=== PATIENT | male | born 1945 | race Caucasian/White ===

== ENCOUNTER → 2018-07-05 | Outpatient (CLI) | payer MEDICARE, OTHER ==
[~2018-07-05] MED LIST: ASCO10004 PO; ASPI-496 PO; ATOR20TA37 PO; CHOL200074 PO; GABA PO; LISI5TAB7 PO; PANT40TA5 PO; RED600CA2 PO; Thyroxine PO; VITA400C43 PO
== END | disposition home or self-care (01) ==
LOC: STAR 13:49
PROVIDERS: ATTEND Surgery
DX: Z01.818 Encounter for other preprocedural examination (principal); I65.22 Occlusion and stenosis of left carotid artery
CPT/HCPCS: 93005

== ENCOUNTER 2018-07-12 08:29 | Inpatient (IN) | payer MEDICARE, OTHER ==
[~2018-07-12] VITALS: Ht 177.8 cm; Wt 71.3 kg
[~2018-07-12 08:29] MED LIST changes: +BACITRACIN 50,000 UNIT ONE; +HEPARIN 1,000 UNITS/ML, 10ML ONE; +LIDOCAINE 1%-EPI 1:100K, 30ML ONE; +PAPAVERINE 30 MG/ML, 2ML ONE; +PROTAMINE SULFATE 10 MG/ML, 5ML ONE; +THROMBIN 5,000 UNIT VIAL TP ONE
[2018-07-12] MEDS ORDERED: LACTATED RINGERS 1,000 ML IV SCH (09:12)
[2018-07-12] MEDS ORDERED: FENTANYL PF 250 MCG/5ML ONE (09:52)
[2018-07-12] MEDS ORDERED: PHENYLEPHRINE 10 MG/ML ONE (10:30)
[2018-07-12] MEDS ORDERED: LIDOCAINE 4%, 4 ML SYR/CANN TP ONE (10:30)
[2018-07-12] MEDS ORDERED: EPHEDRINE 50 MG/ML, 1ML ONE (10:30)
[2018-07-12] MEDS ORDERED: MIDAZOLAM 1 MG/ML, 2ML ONE (11:02)
[2018-07-12] MEDS ORDERED: LIDOCAINE 1%-EPI 1:100K, 30ML INFIL ONE (11:06)
[2018-07-12] MEDS ORDERED: ONDANSETRON 2MG/ML, 2ML ONE ×2 (12:28→15:05)
[2018-07-12] MEDS ORDERED: CEFAZOLIN 1,000 MG ONE (12:28)
[2018-07-12] MEDS ORDERED: SUCCINYLCHOLINE 20 MG/ML, 10ML ONE (12:28)
[2018-07-12] MEDS ORDERED: GLYCOPYRROLATE 0.2MG/1ML, 5ML ONE (12:28)
[2018-07-12] MEDS ORDERED: NEOSTIGMINE 1 MG/ML, 10ML ONE (12:28)
[2018-07-12] MEDS ORDERED: PROPOFOL 10 MG/ML, 20ML ONE (12:28)
[2018-07-12] MEDS ORDERED: DEXAMETHASONE 4 MG/ML, 1ML ONE (12:28)
[2018-07-12] MEDS ORDERED: ROCURONIUM 10MG/ML,5ML ONE (12:28)
[2018-07-12] MEDS: FENTANYL PF 100 MCG/2ML IV PRN ×2 (12:44→13:15)
[2018-07-12] MEDS ORDERED: FENTANYL PF 100 MCG/2ML ONE (12:44)
[2018-07-12] MEDS ORDERED: LABETALOL 20 MG/4 ML ONE (12:44)
[2018-07-12] MEDS ORDERED: hydrALAzine 20 MG/ML, 1ML IV PRN (13:00)
[2018-07-12] MEDS ORDERED: ACETAMINOPHEN 325 MG TABLET PO PRN (13:00)
[2018-07-12] MEDS ORDERED: ONDANSETRON ODT 8 MG PO PRN (13:00)
[2018-07-12] MEDS ORDERED: DIAZEPAM 5 MG/ML, 2ML IVPush PRN (13:00)
[2018-07-12] MEDS ORDERED: OXYcodone 5 MG/5 ML ORAL.SOL UDC PO PRN (13:00)
[2018-07-12] MEDS ORDERED: ONDANSETRON 2MG/ML, 2ML IV PRN (13:00)
[2018-07-12] MEDS ORDERED: MEPERIDINE/PF 25MG/0.5ML IVPush PRN (13:00)
[2018-07-12] MEDS ORDERED: HYDROmorphone 2 MG/ML, 1ML IVPush PRN (13:00)
[2018-07-12] MEDS ORDERED: PROMETHAZINE 25 MG/ML, 1ML IM PRN (13:00)
[2018-07-12] MEDS ORDERED: ACETAMINOPHEN 650 MG/20.3 ML UDC ONE (13:28)
[2018-07-12] MEDS ORDERED: OXYcodone 5 MG/5 ML ORAL.SOL UDC ONE (13:28)
[2018-07-12] MEDS: LABETALOL 5MG/ML, 20ML IV PRN ×2 (13:32→13:39)
[2018-07-12] MEDS ORDERED: MORPHINE SULFATE 4 MG/ML, 1ML ONE (14:34)
[2018-07-12 14:44] VITALS: BP 162/60
[2018-07-12] MEDS ORDERED: NITROPRUSSIDE 50 MG in DEXTROSE 5% 248 ML IV SCH (15:00)
[2018-07-12] MEDS ORDERED: PHENYLEPHRINE 10 MG in DEXTROSE 5% 249 ML IV SCH (15:00)
[2018-07-12] MEDS ORDERED: HYDROcodone/APAP 5/325 TABLET PO PRN (15:00)
[2018-07-12] MEDS ORDERED: ONDANSETRON 2MG/ML, 2ML IVPush PRN (15:00)
[2018-07-12] MEDS ORDERED: morphine SULFATE 10 MG/ML, 1ML IV PRN (15:00)
[2018-07-12] MEDS ORDERED: LABETALOL 5MG/ML, 20ML IVPush PRN (15:00)
[2018-07-12] MEDS ORDERED: ONDANSETRON 4 MG TABLET ONE (15:04)
[2018-07-12 15:45] LABS: MEAN CORPUSCULAR HEMOGLOBIN 32.3 pg (27.5-34.5); MEAN CORPUSCULAR HGB CONC 33.5 g/dL (33.2-36.2); MEAN CORPUSCULAR VOLUME 96.3 fL (81-97); MEAN PLATELET VOLUME 7.8 fL (7.4-10.4); PLATELET COUNT 191 x10^3/uL (130-400); RED BLOOD COUNT 4.06 x10^6/uL (4.38-5.82); RED CELL DISTRIBUTION WIDTH 13.6 % (9.4-14.8)
[2018-07-12 15:58] LABS: ALBUMIN 3.4 g/dL (3.4-5.0); ANION GAP 9 mmol/L (5-15); CALCIUM 7.8 mg/dL (8.5-10.1); CHLORIDE 108 mmol/L (98-107)
[2018-07-12 16:01] LABS: ALANINE AMINOTRANSFERASE 30 U/L (12-78); ALKALINE PHOSPHATASE 24 U/L (45-117); BILIRUBIN,TOTAL 0.4 mg/dL (0.2-1.0); CREATININE 0.79 mg/dL (0.7-1.3)
[2018-07-12 16:10] LABS: MD YES
[2018-07-12 16:12] LABS: BAND#(MANUAL) 0.98 x10^3/uL; BANDS%(MANUAL) 6 % (0-7); EOS#(MANUAL) 0.16 x10^3/uL (0.0-0.4); EOS% (MANUAL) 1 % (1-7); MONOS#(MANUAL) 0.82 x10^3/uL (0.3-2.7); MONOS% (MANUAL) 5 % (2-9); SEG#(MANUAL) 14.43 x10^3/uL (1.8-6.8); SEGS% (MANUAL) 88 % (42-75)
[2018-07-12 16:13] LABS: <PLATELET ESTIMATE> ADEQUATE; <PLT MORPHOLOGY> NORMAL PLT MORPH; <RBC MORPHOLOGY> NORMAL
[2018-07-12] MEDS: CEFAZOLIN PMX 1GM/50ML 50 ML IVPB SCH ×2 (16:25→23:05)
[2018-07-12] MEDS: POTASSIUM CHLORIDE 20 MEQ in LACTATED RINGERS 1,000 ML IV SCH (16:25)
[2018-07-12] MEDS ORDERED: ACETAMINOPHEN 325 MG TABLET ONE (18:05)
[2018-07-12] MEDS: ACETAMINOPHEN 325 MG TABLET PO PRN ×2 (18:07→23:49)
[2018-07-12] MEDS: ENOXAPARIN 40 MG/0.4 ML SQ SCH (20:00)
[2018-07-12] MEDS ORDERED: SODIUM CHLORIDE FLUSH 10ML SYR IVF SCH (21:00)
[2018-07-12] MEDS ORDERED: PANTOPROZOLE 40MG TABLET PO SCH (21:00)
[2018-07-12] MEDS ORDERED: ATORVASTATIN 20 MG TABLET PO SCH (21:00)
[2018-07-13] MEDS: POTASSIUM CHLORIDE 20 MEQ in LACTATED RINGERS 1,000 ML IV SCH (03:55)
[2018-07-13 04:19] VITALS: BP 134/49
[2018-07-13 05:34] LABS: BASOPHILS # (AUTO) 0.04 x10^3/uL (0-0.1); BASOPHILS % (AUTO) 0 % (0-1); EOSINOPHILS # (AUTO) 0.13 x10^3/uL (0-0.4); EOSINOPHILS % (AUTO) 1 % (1-7); LYMPHOCYTES # (AUTO) 0.51 x10^3/uL (1-3.4); LYMPHOCYTES % (AUTO) 4 % (22-44); MD NO; MEAN CORPUSCULAR VOLUME 97.1 fL (81-97); MEAN PLATELET VOLUME 8.3 fL (7.4-10.4); MONOCYTES # (AUTO) 0.68 x10^3/uL (0.2-0.8); MONOCYTES % (AUTO) 6 % (2-9); NEUTROPHILS # (AUTO) 10.42 x10^3/uL (1.8-6.8); NEUTROPHILS % (AUTO) 89 % (42-75); PLATELET COUNT 169 x10^3/uL (130-400); RED BLOOD COUNT 3.63 x10^6/uL (4.38-5.82); RED CELL DISTRIBUTION WIDTH 13.8 % (9.4-14.8)
[2018-07-13 05:40] LABS: ANION GAP 6 mmol/L (5-15); CALCIUM 7.9 mg/dL (8.5-10.1); CHLORIDE 106 mmol/L (98-107); CREATININE 0.85 mg/dL (0.7-1.3)
[2018-07-13] MEDS ORDERED: ASPIRIN 81 MG TABLET EC PO SCH (06:00)
[2018-07-13] MEDS: ACETAMINOPHEN 325 MG TABLET PO PRN (08:14)
[2018-07-13] MEDS ORDERED: LEVOTHYROXINE 175 MCG TABLET PO SCH (09:00)
[2018-07-13] MEDS ORDERED: ASCORBIC ACID 500 MG TABLET PO SCH (09:00)
[2018-07-13] MEDS ORDERED: LISINOPRIL 5 MG TABLET PO SCH (09:00)
[2018-07-13] MEDS ORDERED: CHOLECALCIFEROL 1,000 UNIT TABLET PO SCH (09:00)
[2018-07-13] MEDS ORDERED: VITAMIN E 400 UNITS CAPSULE PO SCH (09:00)
[2018-07-13] MEDS: ENOXAPARIN 40 MG/0.4 ML SQ SCH (09:05)
[2018-07-14] MEDS ORDERED: LEVOTHYROXINE 150 MCG TABLET PO SCH (09:00)
== END 2018-07-13 10:57 | disposition home or self-care (01) | DRG 39 ==
LOC: ORIP 08:29 → CCU 13:51
PROVIDERS: ADMIT Surgery; ATTEND Surgery
PROC: 03UN0KZ Supplement Left External Carotid Artery with Nonautologous Tissue Substitute, Open Approach (ICD-10-PCS; 2018-07-12)
PROC: 03CN0ZZ Extirpation of Matter from Left External Carotid Artery, Open Approach (ICD-10-PCS; principal; 2018-07-12 10:30)
DX: I65.23 Occlusion and stenosis of bilateral carotid arteries (principal); I16.0 Hypertensive urgency; I10 Essential (primary) hypertension; E03.9 Hypothyroidism, unspecified; E78.5 Hyperlipidemia, unspecified; Z86.73 Personal history of transient ischemic attack (TIA), and cerebral infarction without residual deficits; Z85.810 Personal history of malignant neoplasm of tongue; Z87.891 Personal history of nicotine dependence; Z92.3 Personal history of irradiation; Z88.1 Allergy status to other antibiotic agents; Z91.041 Radiographic dye allergy status
CPT/HCPCS: 36415; 80048; 80053; 85025; 87081; C1729; G0378; J0690; J1100; J1644; J1650; J2250; J2405; J2704; J2710; J2720; J3010; J3480; J3490; J7060; C1768; J0330; J2270; J2370; J2440; J7120

== ENCOUNTER 2018-07-13 17:33 | Inpatient (IN) | payer MEDICARE, OTHER ==
[~2018-07-13] VITALS: Ht 177.8 cm; Wt 62.6 kg
[~2018-07-13 17:33] MED LIST changes: -BACITRACIN 50,000 UNIT ONE; -HEPARIN 1,000 UNITS/ML, 10ML ONE; -LIDOCAINE 1%-EPI 1:100K, 30ML ONE; -PAPAVERINE 30 MG/ML, 2ML ONE; -PROTAMINE SULFATE 10 MG/ML, 5ML ONE; -THROMBIN 5,000 UNIT VIAL TP ONE
[2018-07-13] MEDS ORDERED: SODIUM CHLORIDE FLUSH 10ML SYR IVF ONE ×2 (18:30)
[2018-07-13 18:39] LABS: BASOPHILS % (AUTO) 0 % (0-1); EOSINOPHILS # (AUTO) 0.29 x10^3/uL (0-0.4); EOSINOPHILS % (AUTO) 3 % (1-7); LYMPHOCYTES # (AUTO) 0.58 x10^3/uL (1-3.4); LYMPHOCYTES % (AUTO) 6 % (22-44); MD NO; MEAN CORPUSCULAR HEMOGLOBIN 33.1 pg (27.5-34.5); MEAN CORPUSCULAR HGB CONC 34.3 g/dL (33.2-36.2); MEAN CORPUSCULAR VOLUME 96.6 fL (81-97); MEAN PLATELET VOLUME 8.2 fL (7.4-10.4); MONOCYTES # (AUTO) 0.81 x10^3/uL (0.2-0.8); MONOCYTES % (AUTO) 9 % (2-9); NEUTROPHILS # (AUTO) 7.44 x10^3/uL (1.8-6.8); NEUTROPHILS % (AUTO) 82 % (42-75); PLATELET COUNT 181 x10^3/uL (130-400); RED BLOOD COUNT 4.21 x10^6/uL (4.38-5.82); RED CELL DISTRIBUTION WIDTH 13.7 % (9.4-14.8)
[2018-07-13 18:52] LABS: ALANINE AMINOTRANSFERASE 28 U/L (12-78); ALBUMIN 3.4 g/dL (3.4-5.0); ANION GAP 6 mmol/L (5-15); CALCIUM 8.3 mg/dL (8.5-10.1); CHLORIDE 107 mmol/L (98-107); CREATININE 0.94 mg/dL (0.7-1.3)
[2018-07-13 18:55] LABS: ALKALINE PHOSPHATASE 28 U/L (45-117); BILIRUBIN,TOTAL 0.4 mg/dL (0.2-1.0); TOTAL PROTEIN 6.8 g/dL (6.4-8.2)
[2018-07-13] MEDS ORDERED: ACETAMINOPHEN 500 MG TABLET ONE (19:09)
[2018-07-13] MEDS ORDERED: ACETAMINOPHEN 500 MG TABLET PO ONE (19:30)
[2018-07-13] MEDS ORDERED: SODIUM CHLORIDE FLUSH 10ML SYR IVF PRN (19:30)
[2018-07-13] MEDS ORDERED: HEPARIN wt. based STROKE protocol IV PRN (19:30)
[2018-07-13] MEDS ORDERED: DO NOT GIVE XX PRN (19:30)
[2018-07-13 20:25] VITALS: BP 143/74
[2018-07-13] MEDS ORDERED: TEMAZEPAM 15 MG CAPSULE PO PRN (21:00)
[2018-07-13] MEDS ORDERED: ONDANSETRON 2MG/ML, 2ML IVPush PRN (21:00)
[2018-07-13] MEDS ORDERED: DOCUSATE 100 MG CAPSULE PO PRN (21:00)
[2018-07-13] MEDS ORDERED: LIDODERM 5% PATCH TD PRN (21:00)
[2018-07-13] MEDS ORDERED: HEPARIN wt. based STROKE protocol MC ONE (21:00)
[2018-07-13] MEDS: HEPARIN 25,000 UNITS/500ML PMX 500 ML IV PRN (21:37)
[2018-07-13] MEDS: ATORVASTATIN 20 MG TABLET PO SCH (22:58)
[2018-07-13] MEDS: PANTOPROZOLE 40MG TABLET PO SCH (22:58)
[2018-07-14] VITALS (9 sets, daily range): BP systolic 106–188; BP diastolic 63–87
[2018-07-14] MEDS: ACETAMINOPHEN 325 MG TABLET PO PRN ×3 (02:55→18:07)
[2018-07-14 04:04] LABS: CHOL/HDL RATIO 1.6; LDL/HDL RATIO 0.4 (0.5-3.0)
[2018-07-14] MEDS: ASPIRIN 81 MG TABLET CHEW PO/NG SCH (08:51)
[2018-07-14] MEDS: LISINOPRIL 5 MG TABLET PO SCH (14:06)
[2018-07-14] MEDS ORDERED: LABETALOL 5MG/ML, 20ML IVPush PRN (15:00)
[2018-07-14] MEDS: ATORVASTATIN 20 MG TABLET PO SCH (21:45)
[2018-07-14] MEDS: PANTOPROZOLE 40MG TABLET PO SCH (21:45)
[2018-07-15] MEDS: HEPARIN 25,000 UNITS/500ML PMX 500 ML IV PRN (00:23)
[2018-07-15 00:37] VITALS: BP 166/72
[2018-07-15 07:01] VITALS: BP 174/70
[2018-07-15] MEDS: ASPIRIN 81 MG TABLET CHEW PO/NG SCH (08:27)
[2018-07-15] MEDS: LISINOPRIL 5 MG TABLET PO SCH (08:27)
[2018-07-15] MEDS ORDERED: ASPI-515 PO/NG (12:09)
== END 2018-07-15 13:32 | disposition home or self-care (01) | DRG 65 ==
LOC: ED 19:05 → EDIP 19:20 → 4EST 20:09 → DCLOUNGE 07-15 13:20
PROVIDERS: ADMIT Family Medicine; ATTEND Family Medicine
DX: I63.89 Other cerebral infarction (principal); G81.91 Hemiplegia, unspecified affecting right dominant side; E78.5 Hyperlipidemia, unspecified; I10 Essential (primary) hypertension; I65.21 Occlusion and stenosis of right carotid artery; E03.9 Hypothyroidism, unspecified; K21.9 Gastro-esophageal reflux disease without esophagitis; R27.0 Ataxia, unspecified; G83.21 Monoplegia of upper limb affecting right dominant side; Z82.3 Family history of stroke; Z82.49 Family history of ischemic heart disease and other diseases of the circulatory system; Z85.810 Personal history of malignant neoplasm of tongue; Z86.73 Personal history of transient ischemic attack (TIA), and cerebral infarction without residual deficits; Z92.3 Personal history of irradiation; Z87.891 Personal history of nicotine dependence; Z88.1 Allergy status to other antibiotic agents; Z91.041 Radiographic dye allergy status; I67.89 Other cerebrovascular disease
CPT/HCPCS: 36415; 70450; 70551; 80053; 80061; 85025; 85520; 93005; 93306; 99285; G0378; J1644; 92523-GN

== ENCOUNTER → 2018-09-04 | Outpatient (CLI) | payer MEDICARE, OTHER ==
[~2018-09-04] MED LIST changes: +ASPI-515 PO/NG
== END | disposition home or self-care (01) ==
LOC: CFH 12:05
PROVIDERS: ATTEND Internal Medicine Cardiovascular Disease
DX: I10 Essential (primary) hypertension (principal); G45.9 Transient cerebral ischemic attack, unspecified
CPT/HCPCS: 78452; 93017; A9502

== ENCOUNTER 2019-10-29 08:10 | Day surgery (SDC) | payer MEDICARE, OTHER ==
[~2019-10-29] VITALS: Ht 177.8 cm; Wt 67.0 kg
== END 2019-10-29 10:30 | disposition home or self-care (01) ==
LOC: CACL 08:10
PROVIDERS: ATTEND Internal Medicine Cardiovascular Disease
DX: R55 Syncope and collapse (principal); I49.3 Ventricular premature depolarization; I95.9 Hypotension, unspecified; E78.2 Mixed hyperlipidemia; Z79.82 Long term (current) use of aspirin; Z79.890 Hormone replacement therapy; Z79.899 Other long term (current) drug therapy; Z85.810 Personal history of malignant neoplasm of tongue; Z86.73 Personal history of transient ischemic attack (TIA), and cerebral infarction without residual deficits; Z82.49 Family history of ischemic heart disease and other diseases of the circulatory system
CPT/HCPCS: 93660